=== PATIENT | female | born 1965 | race Caucasian/White ===

== ENCOUNTER → 2017-03-22 | Outpatient (CLI) | payer OTHER ==
[~2017-03-22] MED LIST: AUGMENTIN 875875 MG PO; CELEXA10 MG PO; COREG6.25 MG PO; LISINOPRIL10 MG PO; NORCO 5-325 TA1 EACH PO; TESSALON PERLE200 MG PO; ZOLOFT50 MG PO
[2017-03-22 20:27] LABS: ALBUMIN 3.9 gm/dl (3.1-4.5); ALKALINE PHOSPHATASE 86 U/L (45-117); BILIRUBIN, TOTAL 0.4 mg/dl (0.2-1.0); BUN 12 mg/dl (7-24); CARBON DIOXIDE 25 mmol/L (21-32); CHLORIDE 105 mmol/L (98-107); EST GLOM FILT AFRICAN AMERICAN > 60 ml/min; GLUCOSE 135 mg/dL (65-99); POTASSIUM 3.7 mmol/L (3.5-5.1); SGOT/AST 17 IU/L (3-35); SGPT/ALT 29 U/L (12-78); SODIUM 140 mmol/L (136-145); TOTAL PROTEIN 7.5 gm/dL (6.4-8.2)
[2017-03-22 20:29] LABS: FREE T4 0.86 ng/dl (0.76-1.46)
[2017-03-22 20:35] LABS: THYROID STIM HORMONE (HS) 0.727 uIU/ml (0.358-4.75)
== END | disposition home or self-care (01) ==
LOC: LAB 19:51
PROVIDERS: Physician Assistant
DX: I10 Essential (primary) hypertension (principal); R63.5 Abnormal weight gain

== ENCOUNTER → 2018-11-05 | Outpatient (CLI) | payer OTHER | END | disposition home or self-care (01) | LOC: LAB 11:43 | DX: R50.9 Fever, unspecified (principal) ==

== ENCOUNTER → 2018-11-10 | Outpatient (CLI) | payer OTHER | END | disposition home or self-care (01) | LOC: LAB 11:04 | DX: R50.9 Fever, unspecified (principal) ==

== ENCOUNTER → 2019-09-13 | Outpatient (CLI) | payer OTHER | END | disposition home or self-care (01) | LOC: LAB 09:57 | PROVIDERS: Physician Assistant | DX: M25.50 Pain in unspecified joint (principal) ==

== ENCOUNTER → 2020-05-29 | Outpatient (CLI) | payer OTHER | END | disposition home or self-care (01) | LOC: LAB 07:08 | PROVIDERS: ATTEND Emergency Medicine | DX: Z20.828 Contact with and (suspected) exposure to other viral communicable diseases (principal) ==

== ENCOUNTER 2021-05-05 17:28 | Emergency (ER) | payer OTHER ==
[2021-05-05 18:58] LABS: HEMATOCRIT 44.3 % (37.0-47.0); MEAN CELL VOLUME 84.9 fl (81.0-99.0); MEAN CORPUSCULAR HGB 27.2 pg (27.0-31.0); MEAN CORPUSCULAR HGB CONC 32.1 g/dl (33.0-37.0); MEAN PLATELET VOLUME 9.3 fl (9.6-12.3); PLATELET COUNT AUTOMATED 245 10*3/uL (130-400); RED BLOOD COUNT 5.22 10*6/uL (4.10-5.10); RED CELL DISTRI WIDTH 12.9 % (0-14.5); WHITE BLOOD COUNT 5.4 10*3/uL (4.8-10.8)
[2021-05-05 19:19] LABS: ATYPICAL LYMPHS 5 % (0-0); TOTAL CELLS COUNTED 100 #CELLS
[2021-05-05 19:20] LABS: ACT PARTIAL THROMBO TIME 26.4 SECONDS (20.0-32.1); INTERNATIONAL NORM RATIO 0.9 (2.0-3.5); PLATELET SUFFICIENCY NORMAL (NORMAL)
[2021-05-05 19:22] LABS: ALBUMIN 3.3 gm/dl (3.1-4.5); ALKALINE PHOSPHATASE 82 U/L (45-117); BUN 13 mg/dl (7-24); CHLORIDE 107 mmol/L (98-107); CPK 30 U/L (26-192); CREATININE 0.64 mg/dL (0.55-1.02); POTASSIUM 3.9 mmol/L (3.5-5.1); SGOT/AST 22 IU/L (3-35); SGPT/ALT 51 U/L (12-78); SODIUM 139 mmol/L (136-145); TOTAL PROTEIN 7.3 gm/dL (6.4-8.2)
[2021-05-05 19:23] LABS: TROPONIN I < 0.015 ng/ml (<0.045)
[2021-05-05] MEDS ORDERED: PREDNISONE20 M1 PO (21:24)
== END 2021-05-05 22:00 | disposition home or self-care (01) ==
LOC: ED 17:28
PROVIDERS: Emergency Medicine
DX: U07.1 COVID-19 (principal); Z79.899 Other long term (current) drug therapy

== ENCOUNTER → 2025-05-05 | Outpatient (CLI) | payer OTHER ==
[~2025-05-05] MED LIST changes: +PREDNISONE20 M1 PO
== END | disposition home or self-care (01) ==
LOC: RAD 13:46
PROVIDERS: ATTEND Family Medicine
DX: M47.27 Other spondylosis with radiculopathy, lumbosacral region (principal); M48.07 Spinal stenosis, lumbosacral region; M16.11 Unilateral primary osteoarthritis, right hip; M85.88 Other specified disorders of bone density and structure, other site

== ENCOUNTER 2025-06-01 19:56 | Emergency (ER) | payer OTHER | END 2025-06-01 22:29 | disposition home or self-care (01) | LOC: ED 19:56 | DX: S83.191A Other subluxation of right knee, initial encounter (principal); M51.369 Other intervertebral disc degeneration, lumbar region without mention of lumbar back pain or lower extremity pain; M16.11 Unilateral primary osteoarthritis, right hip; I10 Essential (primary) hypertension; W19.XXXA Unspecified fall, initial encounter; Y93.89 Activity, other specified; Y92.89 Other specified places as the place of occurrence of the external cause; Y99.8 Other external cause status ==

== ENCOUNTER → 2025-06-03 | Outpatient (CLI) | payer OTHER | END | disposition home or self-care (01) | LOC: ORTHO 02:06 | PROVIDERS: ATTEND Orthopaedic Surgery | DX: M16.0 Bilateral primary osteoarthritis of hip (principal); M25.511 Pain in right shoulder; M25.552 Pain in left hip ==

== ENCOUNTER → 2025-06-10 | Outpatient (CLI) | payer OTHER ==
[~2025-06-10] MED LIST changes: +NEURONTIN100 MG PO; +TURMERIC500 M2 PO; +VITAMIN B COMP1 EAC1 PO
[2025-06-10 10:41] LABS: BASO # 0.1 10*3/uL (0.0-0.1); BASO % 0.7 % (0.0-1.0); EOS # 0.4 10*3/uL (0.0-0.4); EOS % 4.1 % (1.0-4.0); MEAN CELL VOLUME 86.9 fl (81.0-99.0); MEAN CORPUSCULAR HGB 28.3 pg (27.0-31.0); MEAN PLATELET VOLUME 9.2 fl (9.6-12.3); MONO # 0.7 10*3/uL (0.1-1.0); MONO % 7.0 % (3.0-9.0); NEUT # 5.7 10*3/uL (2.3-7.9); NEUT % 60.0 % (47.0-73.0); NUCLEATED RED BLOOD CELL 0.0 % (0.0-0.0); NUCLEATED RED BLOOD CELL 0.0 10*3/uL (0.0-0.0); PLATELET COUNT AUTOMATED 280 10*3/uL (130-400); RED CELL DISTRI WIDTH 13.3 % (0-14.5)
[2025-06-10 10:54] LABS: ACT PARTIAL THROMBO TIME 26.5 SECONDS (20.0-32.1)
[2025-06-11 16:08] LABS: ANTI-DSDNA ANTIBODIES <1 IU/mL (0-9); ANTI-RNP ANTIBODIES <0.2 AI (0.0-0.9); ANTICHROMATIN ANTIBODIES <0.2 AI (0.0-0.9); ANTISCLERODERMA-70 AB <0.2 AI (0.0-0.9)
== END | disposition home or self-care (01) ==
LOC: RAD 06-08 13:30 → LAB 09:57 → RAD 10:00
PROVIDERS: ATTEND Orthopaedic Surgery
DX: Z01.818 Encounter for other preprocedural examination (principal); M81.0 Age-related osteoporosis without current pathological fracture; G62.9 Polyneuropathy, unspecified; M85.852 Other specified disorders of bone density and structure, left thigh

== ENCOUNTER 2025-07-02 02:01 | Inpatient (IN) | payer OTHER ==
[2025-06-29 14:07] LABS: BASO # 0.1 10*3/uL (0.0-0.1); BASO % 1.1 % (0.0-1.0); BILIRUBIN Negative (Negative); BLOOD Negative (Negative); CLARITY Clear (Clear); COLOR Yellow (Yellow); EOS # 0.4 10*3/uL (0.0-0.4); EOS % 4.0 % (1.0-4.0); KETONE Negative (Negative); LEUKO ESTERASE Negative (Negative); MEAN CELL VOLUME 85.1 fl (81.0-99.0); MEAN CORPUSCULAR HGB 28.7 pg (27.0-31.0); MEAN PLATELET VOLUME 9.5 fl (9.6-12.3); MONO # 0.5 10*3/uL (0.1-1.0); MONO % 6.0 % (3.0-9.0); NEUT # 5.3 10*3/uL (2.3-7.9); NEUT % 59.1 % (47.0-73.0); NITRITE Negative (Negative); NUCLEATED RED BLOOD CELL 0.0 % (0.0-0.0); NUCLEATED RED BLOOD CELL 0.0 10*3/uL (0.0-0.0); PH 5.5 (4.5-8.0); PLATELET COUNT AUTOMATED 286 10*3/uL (130-400); RED CELL DISTRI WIDTH 12.8 % (0-14.5); SPECIFIC GRAVITY 1.020 (1.001-1.030); UROBILINOGEN 0.2 E.U./dl (0.0-1.0)
[2025-06-29 14:17] LABS: ACT PARTIAL THROMBO TIME 26.8 SECONDS (20.0-32.1)
[2025-06-29 14:23] LABS: MUCOUS 1+; WBC 0-2 wbc/hpf (0-5)
[2025-06-29 14:25] LABS: BUN 17 mg/dl (9-23); SGPT/ALT 23 U/L (5-49)
[~2025-07-02] VITALS: Ht 160 cm; Wt 74.0 kg
[2025-07-02] VITALS (8 sets, daily range): BP systolic 129–175; BP diastolic 79–100
[2025-07-02] MEDS ORDERED: TRANEXAMIC ACID IN NACL,ISO-OS 100 ML IV ONE ×2 (07:05→07:28)
[2025-07-02] MEDS ORDERED: Lactated Ringer's Solution 1,000 ML IV ONE ×2 (07:14→07:15)
[2025-07-02] MEDS ORDERED: ACETAMINOPHEN 100 ML IV ONE (07:15)
[2025-07-02] MEDS ORDERED: Bupivacaine Hydrochloride/Ep2 30 ML VIAL ONE (07:47)
[2025-07-02] MEDS ORDERED: Ondansetron Hydrochloride 4 MG/2 ML VIAL IV PRN (11:25)
[2025-07-02] MEDS ORDERED: Acetaminophen/Oxycodone 5 MG/325 MG TABLET PO PRN (11:30)
[2025-07-02] MEDS ORDERED: SUGAMMADEX SODIUM 200 MG/2 ML VIAL IV ONE (12:25)
[2025-07-02] MEDS ORDERED: ROCURONIUM BROMIDE 50 MG/5 ML SYRINGE IV ONE (12:25)
[2025-07-02] MEDS ORDERED: Dexamethasone Sodium Phospha 4 MG/ML VIAL IV ONE (12:25)
[2025-07-02] MEDS ORDERED: MAGNESIUM SULFATE 1 GM/2 ML VIAL IV ONE (12:25)
[2025-07-02] MEDS ORDERED: PROPOFOL 200 MG/20 ML VIAL IV ONE (12:25)
[2025-07-02] MEDS ORDERED: Ondansetron Hydrochloride 4 MG/2 ML VIAL IV ONE (12:25)
[2025-07-02] MEDS ORDERED: Esmolol Hydrochloride 100 MG/10 ML VIAL IV ONE (12:25)
[2025-07-02] MEDS ORDERED: SEVOFLURANE 250 ML BOT INH ONE (12:25)
[2025-07-02] MEDS ORDERED: Phenylephrine Hydrochloride 1 MG/10 ML SYRINGE IV ONE (12:25)
[2025-07-02] MEDS ORDERED: Midazolam Hydrochloride 2 MG/2 ML VIAL IV ONE (12:30)
[2025-07-02] MEDS ORDERED: Ketamine Hydrochloride 50 MG/5 ML SYRINGE IV ONE (12:30)
[2025-07-02] MEDS ORDERED: HYDROCHLOROTH12.5 M3 PO (13:25)
[2025-07-02] MEDS ORDERED: GABAPENTIN 100 MG CAP PO SCH (14:00)
[2025-07-02] MEDS ORDERED: TEMAZEPAM 15 MG CAP PO PRN (14:25)
[2025-07-02] MEDS ORDERED: Acetaminophen/Hydrocodone 5 MG/325 MG TABLET PO PRN (14:25)
[2025-07-02] MEDS ORDERED: ACETAMINOPHEN 325 MG TAB PO PRN (14:25)
[2025-07-02] MEDS ORDERED: ACETAMINOPHEN 650 MG SUPP R PRN (14:25)
[2025-07-02] MEDS ORDERED: CARVEDILOL 6.25 MG TAB PO SCH (22:00)
[2025-07-03] VITALS: BP 147/83
[2025-07-03 06:13] LABS: MEAN CELL VOLUME 86.2 fl (81.0-99.0); MEAN CORPUSCULAR HGB 29.0 pg (27.0-31.0); MEAN PLATELET VOLUME 9.8 fl (9.6-12.3); NUCLEATED RED BLOOD CELL 0.0 % (0.0-0.0); NUCLEATED RED BLOOD CELL 0.0 10*3/uL (0.0-0.0); PLATELET COUNT AUTOMATED 267 10*3/uL (130-400); RED CELL DISTRI WIDTH 13.1 % (0-14.5)
[2025-07-03 06:34] LABS: MANUAL DIFF REFLEX YES
[2025-07-03 06:55] LABS: PLATELET SUFFICIENCY NORMAL (NORMAL)
[2025-07-03 07:26] LABS: BUN 20 mg/dl (9-23)
[2025-07-03 07:30] LABS: BUN 20 mg/dl (9-23); LDL CHOLESTEROL 97 mg/dL (9-159); SGPT/ALT 17 U/L (5-49)
[2025-07-03 08:00] VITALS: BP 137/75
[2025-07-03] MEDS ORDERED: ASPIRIN ENTERIC COATED 81 MG TAB PO SCH (10:00)
[2025-07-03] MEDS ORDERED: DOCUSATE SODIUM 100 MG CAP PO SCH (10:00)
[2025-07-03] MEDS ORDERED: Cholecalciferol 2,000 UNIT TABLET (50 MCG) PO SCH (10:00)
[2025-07-03 12:00] VITALS: BP 132/68
[2025-07-03] MEDS ORDERED: HYDROCODONE-AC1 EAC1 PO ×2 (15:27→16:13)
[2025-07-03] MEDS ORDERED: ASPIRIN ADULT L81 M2 PO ×2 (15:27→16:13)
== END 2025-07-03 16:35 | disposition home health service (06) | DRG 470 ==
LOC: SDC 02:01 → 5E 07:12 → SDC 07:30 → 5E 14:33
PROVIDERS: Orthopaedic Surgery; Student in an Organized Health Care Education/Training Program; ADMIT Internal Medicine; ATTEND Internal Medicine
PROC: 0SR904A Replacement of Right Hip Joint with Ceramic on Polyethylene Synthetic Substitute, Uncemented, Open Approach (ICD-10-PCS; principal; 2025-07-02)
DX: M16.11 Unilateral primary osteoarthritis, right hip (principal); R73.03 Prediabetes; F41.9 Anxiety disorder, unspecified; F32.9 Major depressive disorder, single episode, unspecified; R73.9 Hyperglycemia, unspecified; Z82.49 Family history of ischemic heart disease and other diseases of the circulatory system; Z80.1 Family history of malignant neoplasm of trachea, bronchus and lung; Z79.899 Other long term (current) drug therapy

== ENCOUNTER → 2025-07-17 | Outpatient (CLI) | payer OTHER ==
[~2025-07-17] MED LIST changes: +ASPIRIN ADULT L81 M2 PO; +HYDROCHLOROTH12.5 M3 PO; +HYDROCODONE-AC1 EAC1 PO
== END | disposition home or self-care (01) ==
LOC: ORTHO 03:38
PROVIDERS: ATTEND Orthopaedic Surgery
DX: M79.89 Other specified soft tissue disorders (principal); M16.11 Unilateral primary osteoarthritis, right hip; J43.8 Other emphysema; Z96.651 Presence of right artificial knee joint